=== PATIENT | female | born 1980 | race African-American/Black ===

== ENCOUNTER 2016-05-27 10:08 | Inpatient (IN) | payer OTHER ==
--- NOTE | ~2016-05-27 | DS ---
Discharge Summary [facility] [address] [place]. [address] NAME: KEE HOFF : 82 STATUS : DIS IN PAT#: [id number] AGE: 35 ADM/REG DATE : 05/27/16 MR#: [id number] REPORT SERV DATE: 06/03/16 DICTATED BY: CAROL ANN PENDLETON DATE: 06/02/16 REPORT STATUS : Draft TRANSCRIBED BY: MODL DATE: 06/02/16 ADMISSION DATE: 05/27/2016 DISCHARGE DATE: 06/02/2016 REASON FOR ADMISSION: Acute on chronic urinary retention with bilateral hydronephrosis, acute on chronic CKD stage 3, Klebsiella urinary tract infection. HISTORY OF PRESENT ILLNESS: Please refer Dr. Gaming's history and physical dated 05/27/2016 for complete details regarding the patient's admission. In brief, the patient was admitted to the Hospitalist Service for urinary tract infection, acute kidney injury. HOSPITAL COURSE: The patient had uncomplicated hospital course from admission to 05/31/2016. Please refer Dr. Sada Dewitt's interim summary. In brief, Dr. Dewitt had managed her acute on chronic urinary retention with bilateral hydronephrosis, her acute on chronic CKD stage 3 had been resolving. She had been diagnosed with Klebsiella urinary tract infection and was already on the appropriate antibiotic therapy. Hospital course from 06/01/2016 to present, I assumed care from Dr. Dewitt. The patient had a Hayes catheter placed on the day that I assumed care, she had already had one done when I assumed care of the patient. She had been treated with IV antibiotics since admission. Her Klebsiella urinary tract infection was weinberg-susceptible to all antibiotics tested. Her white blood cell count had always been normal. She has been afebrile for several days. Dr. Dewitt had tested her for the flu which was negative. Respiratory culture was obtained which showed growth of normal norma and Staph coag-negative species. She had a chest x-ray done, last one was May 29 which showed interval development of a in the left lung base consistent with infiltrate and atelectasis. She had a V/Q scan done which showed normal V/Q scan. CT scan of her abdomen and pelvis done on admission showed mild bilateral hydroureteronephrosis. The urinary bladder appears mildly diffusely thickened which may represent chronic changes of underlying cystitis. Renal ultrasound showed mild right hydronephrosis. No appreciable left hydronephrosis. Her acute on chronic CKD was resolved. Her kidney function is back to her baseline. On the day of discharge, she was weaned off oxygen saturating 95% on room air. She did have some nasal congestion and rhonchi on exam; however, she has been afebrile with a normal white blood cell count. She is on appropriate antibiotic therapy. She has reached maximal hospitalization. She continued to say that she did not feel well. When further talking to her, she was complaining of her typical flank pain that radiate down her leg, but again there were not reasons to continue to keep her hospitalized as all of her acute issues are now back to her baseline. The patient was discharged home in stable condition to follow up with Dr. Hernández in the clinic. DISCHARGE DIAGNOSES: 1. Acute on chronic urinary retention with bilateral hydronephrosis, now resolved. 2. Acute on chronic kidney disease stage 3, now resolved. 3. Metabolic acidosis, stable. 4. Klebsiella urinary tract infection, resolved. 5. Uncontrolled type 2 diabetes with hemoglobin A1c around 11%. 6. Chronic pain syndrome, on Marinol and narcotics. Discharge Summary [address] [address] NAME: KEE HOFF : 82 STATUS : DIS IN PAT#: [id number] AGE: 35 ADM/REG DATE : 05/27/16 MR#: [id number] REPORT SERV DATE: 06/03/16 DICTATED BY: CAROL ANN PENDLETON DATE: 06/02/16 REPORT STATUS : Draft TRANSCRIBED BY: ANA PAULA DATE: 06/02/16 PROCEDURES: Include chest x-ray, V/Q scan, renal ultrasound, CT scan of the abdomen and pelvis. DISCHARGE MEDICATIONS: Levaquin 750 mg once a day for seven days, Marinol 5 mg twice a day, gabapentin 600 mg four times a day, Robitussin p.r.n., NovoLog FlexPen 5 units three times a day before meals, Levemir 30 units at bedtime, sodium bicarbonate 1300 mg twice a day, albuterol, amlodipine 10 mg every morning, Pravachol 20 mg at bedtime, Bactroban p.r.n. She will follow up with Dr. Hernández in one week. This is Dr. Carol Ann Pendleton spending over 30 minutes on discharge planning and coordination of care. CHINMAY/ANA PAULA Carol Ann Pendleton MD / [id number] CC: MD Dr. Charito Galvan
--- NOTE | ~2016-05-27 | HP ---
History And Physical [place] [id number] [facility] [place]. [address] NAME: KEE HOFF : 82 STATUS : ADM IN PAT#: [id number] AGE: 35 ADM/REG DATE : 05/27/16 MR#: [id number] REPORT SERV DATE: 05/27/16 DICTATED BY: CORY CLARK DATE: 05/27/16 REPORT STATUS : Draft TRANSCRIBED BY: MODL DATE: 05/27/16 DATE OF ADMISSION: 05/27/2016 EXAMINING PHYSICIAN: Cory Clark M.D. REASON FOR ADMISSION: Pyelonephritis, urinary retention in type 1 diabetic with multiple complications. HISTORY: This is a 35-year-old, white female, with history of diabetes since . She has been on insulin since infancy. She has been somewhat noncompliant in the past and has multiple complications from the diabetes. She has gastroparesis and has a gastric pacemaker placed by [facility]. Dr. Jorgensen follows her locally. She had CT scan of her abdomen because of abdominal pain by Dr. Jorgensen. She is having continued abdominal pain, was sent around to the emergency room for evaluation and treatment. She is seen by Dr. Mark. Dr. Mark thought she had gastroparesis. Her complaint actually is back pain, flank pain, and dysuria. She does have evidence of urinary tract infection by urinalysis. In addition, CT scan of her abdomen had shown bilateral hydronephrosis which may be due to urinary retention which she has on the CT scan with underlying diffuse bladder thickening suggesting chronic infection. She has previous colon surgery with colostomy that was done for persistent diabetic diarrhea. She has gastric pacemaker in place, and the stomach is only mildly distended with air. She has edema within the abdominal and pelvic fat planes and subcutaneous edema as well of questionable significance. She has had no fever, chills, or night sweats. No hematuria. She does have some difficulty emptying her urine. Her hemoglobin A1c has been running in the 18 range. She has got down to 11. Her kidneys have began to fail, and she saw Dr. Hernández. He suggested she get the hemoglobin A1c down to around the 7 range. I do not believe she has ever seen the 7 range in the past. PAST MEDICAL HISTORY: Multiple hospitalizations in the past. Most recent discharge summary from April 07 when she was seen by Dr. Saxena for acute gastroparesis. Her hemoglobin A1c was down to 11.7 during that prior hospitalization. She had evidence of E. coli, urinary tract infection which was treated with ceftriaxone and subsequently switched to Unasyn because of resistance. She does have chronic urinary retention, was on a Hayes catheter in the past. She has chronic kidney disease stage 3, hypertension, and chronic pain. She had been on insulin pump in the past, now is on multiple subcutaneous dosing of insulin. HOME MEDICATIONS: Include the following: Albuterol aerosols four times a day as needed; amlodipine 10 mg p.o. q.a.m.; Marinol 5 mg p.o. before breakfast and supper; gabapentin 600 mg p.o. four times a day; Robitussin 10 mL b.i.d. p.r.n.; Insulin NovoLog 5 units subcu t.i.d.; Levemir 30 units at bedtime; Bactroban ointment to spots on her arm; oxycodone 15 mg q.6 hours scheduled for pain; and pravastatin 20 mg p.o. at bedtime. SOCIAL HISTORY: She has a boyfriend here with her. She does not smoke. She does not drink. She does claim she goes to [employer]. She has no children. History And Physical [address] [address] NAME: KEE HOFF : 82 STATUS : ADM IN [facility]#: [id number] AGE: 35 ADM/REG DATE : 05/27/16 MR#: [id number] REPORT SERV DATE: 05/27/16 DICTATED BY: CORY CLARK DATE: 05/27/16 REPORT STATUS : Draft TRANSCRIBED BY: ANA PAULA DATE: 05/27/16 FAMILY HISTORY: Her mother had breast cancer and diabetes. She did not know her father. PAST MEDICAL HISTORY: She has had multiple abscesses incised and drained, mostly skin. 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 She had her sixth finger removed at . She does a Port-A-Cath because of lack of venous access. She has a history of cardiac catheterization in December 2014, history of mesenteric artery occlusion, history of pancreatitis, history of fungemia. REVIEW OF SYSTEMS: She complains of abdominal pain, mostly heavy feeling in lower abdomen bilaterally. She has had no blood in her stool. Her bowels are moving now. She has had no vomiting. She has had no fever, chills, night sweats, unilateral weakness, melena, or hematemesis. She does have flank pain, dysuria. She does have hematuria as well with no fits, seizures, convulsions, unilateral weakness, melena, or hematemesis. The remainder of the review of systems is negative. PHYSICAL EXAMINATION: GENERAL: Black female in no acute distress. HEENT: EOMI. Sclerae clear. Conjunctivae pink. Tongue is dry. NECK: No bruit without any JVD. CHEST: Clear. HEART: Regular S1, S2 without murmur, gallop, or click. ABDOMEN: Soft, tender in the lower abdomen. There is colostomy to the left of midline lower abdomen. EXTREMITIES: No edema. Distal pulses are intact in dorsalis pedis and posterior tibial. NEUROLOGIC: She withdraws to plantar stimulation. Sensory is not good in the lower extremities. Her train director is equal and symmetric bilaterally. Coordination is intact. She has no tremor. She is symmetric and equal neurologically. Strength is equal and symmetric in the hands. She is wearing a wig today. PSYCHIATRIC: Her speech is cogent and goal directed. SKIN: Multiple cutaneous scarring. LABORATORY DATA: Her CT scan of the abdomen was as above. Her glucose has come down from over 500 to 198 with insulin. Her urinalysis shows glucose greater than 500 mg%. Ketones were negative, however. Her urine specific gravity 1.013, pH of 5. Her CMP showed a sodium 132, potassium 4.8, chloride of 99, CO2 is low at 21, creatinine 1.95 was as low as 1.7 previously with BUN of 19. Her glucose is 491 originally. Her albumin is 3.2, globulin of 43. Lipase was only 194. The flu A and B screen were negative. Her portable chest x-ray showed no evidence of acute cardiopulmonary disease. Her hemoglobin was 11.3, hematocrit 33, MCV was 74.5 with platelet count of 233,000. Arterial blood gases initially 7.42, 31, 46 on FiO2 21% but she has no respiratory distress. ASSESSMENT: History And Physical [address] [address] NAME: KEE HOFF : 82 STATUS : ADM IN PAT#: [id number] AGE: 35 ADM/REG DATE : 05/27/16 MR#: [id number] REPORT SERV DATE: 05/27/16 DICTATED BY: CORY CLARK DATE: 05/27/16 REPORT STATUS : Draft TRANSCRIBED BY: MODL DATE: 05/27/16 1. Urinary tract infection. 2. Urinary retention. 3. Hydronephrosis by CT scan. 4. Diabetes type 1, with last hemoglobin A1c being 11 range. 5. Hyperglycemia. 6. Chronic kidney disease with creatinine now up from 1.7 to 1.95, followed by Dr. Hernández. 7. Neuropathy. 8. IV access with Port-A-Cath. 9. History of pancreatitis. 10.Colostomy because of complications from the diabetes. 11.History of gastroparesis. CT scan of the abdomen shows decompression of the stomach with an air-fluid level, however, no gross distention. She is followed by Dr. Calloway at [facility] and Dr. Jorgensen, here. PLAN: Check urinary retention and place Hayes, start on IV antibiotics. She does not appear to be in diabetic ketoacidosis and says she can eat, and we will go ahead and feed and restart her usual insulin dosing at home rather than the D5 plus insulin regimen initially conceived. We will start normal saline at low rate as she is slightly hyponatremic though this may be factitious because of her high glucose level. We will start empiric antibiotics though last culture is reviewed from old records with E. coli that was resistant to gentamicin, sensitive to cefazolin, resistant to Cipro, Septra, and ampicillin. Therefore, we will use Rocephin 1 g IV q.24 hours. DB/ANA PAULA Cory Calrk M.D. / [id number] CC: Gabe Engel M.D. Jimmy Davis, M.D. Matthew Bagamery, M.D. Mango Gong III, M.D.
--- NOTE | ~2016-05-27 | IDS ---
Interim Discharge Summary [facility] [address] [place]. [address] NAME: KEE HOFF : 82 STATUS : ADM IN [facility]#: [id number] AGE: 35 ADM/REG DATE : 05/27/16 MR#: [id number] REPORT SERV DATE: 05/31/16 DICTATED BY: BOB DOWNS DATE: 05/31/16 REPORT STATUS : Draft TRANSCRIBED BY: ANA PAULA DATE: 05/31/16 ADMISSION DATE: 05/27/2016 DISCHARGE DATE: DIAGNOSES: 1. Acute on chronic urinary retention with bilateral hydronephrosis, improved. The patient self-catheterizes at home. 2. Acute on chronic kidney disease. 3. Metabolic acidosis. 4. Left lower lobe pneumonia. 5. Klebsiella urinary tract infection. 6. Elevated LFTs. 7. Type 1 diabetes, uncontrolled. 8. Chronic pain management. HOSPITAL COURSE: Please see H and P dictated by Dr. Gaming. This is a 35 years old female with a past medical history of chronic urinary retention, performs self- catheterizations at home and type 1 diabetes who presented with bilateral costovertebral angle discomfort as well as subjective fever and chills. The patient was seen in [facility] ER, found to have signs of urinary tract infection as well as urinary retention with hydronephrosis. The patient had not self-catheterized herself at that time. She did have a CT that revealed some bilateral hydronephrosis. However, no CT findings of pyelonephritis, although clinical suspicion was suggested on H and P. She was continued with IV antibiotics. Also during her hospital stay, the patient had some acute on chronic kidney disease with a creatinine elevating above her baseline to 2.67 and now is finally decreasing to 2.27. Suspect the patient may have had some underlying ATN. She did have some hypotension during her hospital course, which now has resolved. Also urinary tract infection has grown out Klebsiella. We will continue with her antibiotics. She does have a positive productive cough, rhonchi. We will continue with antibiotics for treatment. She did have a chest x-ray that has finally grew out some mild haziness in the left lower lobe consistent with a possible early pneumonia. Also, the patient will have a repeat influenza swab for intermittent fever spikes. So far, blood cultures are no growth to date. Also, the patient is on chronic pain management as an outpatient and continues with her home medications. The patient will be followed by Dr. Pendleton starting 06/01/2016, who will attend to this patient's care. JYOTHI/ANA PAULA Bob Downs M.D. / [id number] Interim Discharge Summary [address] [address] NAME: KEE HOFF : 82 STATUS : ADM IN [facility]#: [id number] AGE: 35 ADM/REG DATE : 05/27/16 MR#: [id number] REPORT SERV DATE: 05/31/16 DICTATED BY: BOB DOWNS DATE: 05/31/16 REPORT STATUS : Draft TRANSCRIBED BY: ANA PAULA DATE: 05/31/16 CC: Gabe Rivera Amy
[~2016-05-27 10:08] MED LIST: ?BP MED; ACET500CAP PO; AMB10 PO; AMB5 PO; AMBIEN; AMOX250 PO; APRES10B PO; APRES25 PO; APRES50 PO; ASAB PO; ATV1 PO; AUG875 PO; BAC PO; BACDS PO; CATAPRES2 TOP; CEFT5 PO; CELEXA20 PO; CELEXA40 MG PO; CIPOTIC OT; CLEOCIN300 MG PO; CLINORIL PO; COREG12 PO; DIL2TAB PO; DIL4TAB PO; DURA50 TOP; DURICEF PO; DURICEFSUS PO; ENDOCET1 TAB PO; ERY-TAB250 MG PO; FESO4 PO; FLORASTOR250 MG PO; FOLIC PO; GLUCAGON IM; HAIR/SKIN/NAILS VIT PO; HUMALOG SC; HUMALOGPEN SC; HUMAPUMP SC; HYDROCHLOROT12.5 MG PO; HYDROCHLOROT25 MG PO; IMOD PO; INSNOVR SC; K500 PO; KAYEXUD PO; LACHYDRIN LOT225 GM EX; LACTINEXT PO; LANTUS; LANTUS SC; LANTUSCART SC; LEVEMFLXPN SC; LEVEMIR SC; LIDO5OINT TOP; LIPITOR40 PO; LISINOPRIL PO; LISINOPRIL40 MG PO; LOP25 PO; LOP50 PO; LORTAB 5 PO; LORTAB10 PO; LYRICA100 MG PO; LYRICA150 MG PO; MAG OXIDE250 MG PO; MAGOX4 PO; MARI5 PO; MICROZIDE PO; MIRALAXPKT PO; MULTIPLE VIT PO; MYL80 PO; NEUR600 PO; NEUROPATHY MED; NORCO1 TAB PO; NORV10 PO; NORV25 PO; NORV5 PO; NOVOLOG INSULIN; NOVOLOG SC; NOVOPEN SC; OXYCOD PO; PAX20 PO; PAXIL PO; PAXIL30 MG PO; PAXIL40 MG PO; PEDIAZOLE PO; PERCOCET1 TA2 PO; PERCOCET1 TA4 PO; PR12.5 PO; PR25 PO; PRAVAC PO; PRAVACHOL40 MG PO; PRILOSEC OTC PO; PRILOSEC40 MG PO; PRIN10 PO; PRIN2.5 PO; PRIN20 PO; PRIN5 PO; PROTONIX PO; RANITIDINE300 MG PO; REFRESH OP; REG PO; REG5 PO; REGLAN; REGLAN10 MG PO; ROXICODONE15 MG PO; SEPTRA DS1 TAB PO; SUCR PO; T PO; THERGRANM PO; VICODINTAB PO; ZESTRIL20 MG PO; ZOFRAN ODT4 MG PO; ZOFRAN ODT4 MG PO/SL; ZOL50 PO; ZOLOFT25 MG PO
[2016-05-27 10:26] LABS: BASOPHILS 0.1 %; BASOPHILS ABSOLUTE 0.01 10/3/uL (0.0-0.16); EOSINOPHILS 1.2 %; HEMATOCRIT 33.1 % (36.0-48.0); HEMOGLOBIN 11.3 g/dL (12.0-16.0); IMMATURE GRANULOCYTES 0.4 %; IMMATURE GRANULOCYTES ABSOLUTE 0.03 10/3/uL (0.0-0.11); LYMPHOCYTES ABSOLUTE 0.42 10/3/uL (0.67-4.30); MEAN CORPUS HGB CONC 34.1 g/dL (32.0-36.0); MEAN CORPUSCULAR HEMOGLOB 25.5 pg (26.0-34.0); MEAN CORPUSCULAR VOLUME 74.5 fL (80-100); MEAN PLATELET VOLUME 12.2 fL (9.2-13.0); MONOCYTES 7.3 %; MONOCYTES ABSOLUTE 0.61 10/3/uL (0.21-1.20); NEUTROPHILS ABSOLUTE 7.22 10/3/uL (2.02-8.40); PLATELET COUNT 233 10/3/uL (150-400); RBC DISTRIBUTION WIDTH 13.2 % (12.0-16.0); RED CELL COUNT 4.44 10/6/uL (4.0-5.6); WHITE BLOOD CELLS 8.4 10/3/uL (4.5-10.5)
[2016-05-27 10:29] LABS: MANUAL DIFF NO %
[2016-05-27 10:34] LABS: BE (BASE EXCESS) -3.6 MEQ/L (0 +/- 2.5); CARBOXYHEMOGLOBIN 1.1 % (0-3); HCO3 (ACTUAL BICARBONATE) 19.9 MEQ/L (23-27); HEMOBLOGIN CONTENT 12.1 G/DL (12-16); INSTRUMENT SERIAL # 8087; METHEMOGLOBIN 0.4 % (0-3); O2 CONTENT 15.1 VOL% (18-24); PCO2 (CO2 TENSION) 31 MMHG (35-45); PO2 (O2 TENSION) 46 MMHG (79-93); pH 7.42 (7.37-7.43)
[2016-05-27 10:42] LABS: A/G RATIO 0.7 (0.7-1.9); ALBUMIN 3.2 G/DL (3.5-5.0); BUN (BLOOD UREA NITROGEN) 19 MG/DL (6-23); CALCIUM, SERUM 8.9 MG/DL (8.5-10.4); CHLORIDE, SERUM 99 MMOL/L (96-112); CREATININE 1.95 MG/DL (0.55-1.02); GFR AFRICAN AMERICAN 38 ML/MIN (>=60); GFR NON AFRICAN AMERICAN 33 ML/MIN (>=60); GLOBULIN 4.3 G/DL (2.5-4.1); POTASSIUM, SERUM 4.9 MMOL/L (3.5-5.3); SGPT(ALT) 177 U/L (5-65); SODIUM, SERUM 132 MMOL/L (135-148); TOTAL BILIRUBIN 0.3 MG/DL (0-1.2); TOTAL PROTEIN 7.5 G/DL (6.0-8.5)
[2016-05-27 10:43] LABS: ALKALINE PHOSPHATASE 207 U/L (45-117); CO2 (CARBON DIOXIDE) 21 MMOL/L (24-34); GLUCOSE, SERUM 491 MG/DL (60-99); SGOT(AST) 98 U/L (5-40)
[2016-05-27 10:45] LABS: MICROCYTES 1+ (5-10/OIF) (0-5/OIF); PLATELET ESTIMATE ADQ (ADEQUATE)
[2016-05-27 11:10] LABS: INFLUENZA A SCREEN NEGATIVE (NEGATIVE); INFLUENZA B SCREEN NEGATIVE (NEGATIVE)
[2016-05-27 12:04] LABS: ASCORBIC ACID (UR NOT ORDER) NEG (NEG); BILIRUBIN, URINE NEGATIVE (NEG); ER URINALYSIS TAT 0 Hrs 11 Mins; KETONE, URINE NEGATIVE (NEG); LEUKOCYTE ESTERASE(NOT OR NEG (NEG); NITRITE (URINE) NEG (NEG); WBC (NOT ORDERED) (RFLEX) 21 (0-5)
[2016-05-27] MEDS ORDERED: NORV10 PO (15:28)
[2016-05-27] MEDS ORDERED: MARI5 PO (15:29)
[2016-05-27] MEDS ORDERED: NEUR600 PO (15:29)
[2016-05-27] MEDS ORDERED: GGEXPUD PO (15:30)
[2016-05-27] MEDS ORDERED: NOVOPEN SC (15:30)
[2016-05-27] MEDS ORDERED: LEVEMFLXPN SC (15:31)
[2016-05-27] MEDS ORDERED: PRAVAC PO (15:31)
[2016-05-27] MEDS ORDERED: ROXICODONE15 MG PO (15:31)
[2016-05-27] MEDS ORDERED: ALBUTEROL0.083 % INH (15:32)
[2016-05-27] MEDS ORDERED: BACTROINT TOP (15:34)
[2016-05-28 05:15] LABS: BUN (BLOOD UREA NITROGEN) 17 MG/DL (6-23); CALCIUM, SERUM 8.3 MG/DL (8.5-10.4); CHLORIDE, SERUM 111 MMOL/L (96-112); CO2 (CARBON DIOXIDE) 26 MMOL/L (24-34); CREATININE 1.62 MG/DL (0.55-1.02); GFR AFRICAN AMERICAN 48 ML/MIN (>=60); GFR NON AFRICAN AMERICAN 41 ML/MIN (>=60); GLUCOSE, SERUM 52 MG/DL (60-99); SODIUM, SERUM 143 MMOL/L (135-148)
[2016-05-28 05:33] LABS: BASOPHILS 0.2 %; BASOPHILS ABSOLUTE 0.01 10/3/uL (0.0-0.16); EOSINOPHILS 0.3 %; EOSINOPHILS ABSOLUTE 0.02 10/3/uL (0.0-0.53); HEMATOCRIT 30.2 % (36.0-48.0); HEMOGLOBIN 10.4 g/dL (12.0-16.0); IMMATURE GRANULOCYTES 0.5 %; IMMATURE GRANULOCYTES ABSOLUTE 0.03 10/3/uL (0.0-0.11); LYMPHOCYTES 9.7 %; LYMPHOCYTES ABSOLUTE 0.61 10/3/uL (0.67-4.30); MEAN CORPUS HGB CONC 34.4 g/dL (32.0-36.0); MEAN CORPUSCULAR HEMOGLOB 26.5 pg (26.0-34.0); MEAN PLATELET VOLUME 11.8 fL (9.2-13.0); MONOCYTES 10.2 %; MONOCYTES ABSOLUTE 0.64 10/3/uL (0.21-1.20); NEUTROPHILS 79.1 %; NEUTROPHILS ABSOLUTE 4.98 10/3/uL (2.02-8.40); PLATELET COUNT 187 10/3/uL (150-400); RBC DISTRIBUTION WIDTH 13.2 % (12.0-16.0); RED CELL COUNT 3.92 10/6/uL (4.0-5.6); WHITE BLOOD CELLS 6.3 10/3/uL (4.5-10.5)
[2016-05-28 05:36] LABS: MANUAL DIFF NO %
[2016-05-28 09:59] LABS: TROPONIN I 0.05 NG/ML (<0.05)
[2016-05-28 10:20] LABS: HEPATITIS B SURFACE ANTIGEN NON-REACTIVE (NON-REACT)
[2016-05-28 10:47] LABS: HEPATITIS C ANTIBODY NON-REACTIVE (NON-REACT)
[2016-05-28 10:48] LABS: HEPATITIS B CORE AB IGM NON-REACTIVE (NON-REAC)
[2016-05-28 10:50] LABS: HEP A ANTIBODY IGM NON-REACTIVE (NON-REACT)
[2016-05-28 16:58] LABS: TROPONIN I 0.04 NG/ML (<0.05)
[2016-05-29 07:25] LABS: BUN (BLOOD UREA NITROGEN) 23 MG/DL (6-23); CHLORIDE, SERUM 109 MMOL/L (96-112); CO2 (CARBON DIOXIDE) 20 MMOL/L (24-34); GFR AFRICAN AMERICAN 31 ML/MIN (>=60); GFR NON AFRICAN AMERICAN 27 ML/MIN (>=60); GLUCOSE, SERUM 266 MG/DL (60-99); POTASSIUM, SERUM 4.6 MMOL/L (3.5-5.3); SODIUM, SERUM 139 MMOL/L (135-148)
[2016-05-29 17:11] LABS: ALBUMIN 2.4 G/DL (3.5-5.0); ALKALINE PHOSPHATASE 143 U/L (45-117); DIRECT BILIRUBIN < 0.1 MG/DL (0.0-0.4); INDIRECT BILIRUBIN(NOT ORDER) 0.1 MG/DL (0.1-0.9); SGOT(AST) 41 U/L (5-40); SGPT(ALT) 82 U/L (5-65); TOTAL BILIRUBIN 0.2 MG/DL (0-1.2); TOTAL PROTEIN 6.2 G/DL (6.0-8.5)
[2016-05-30 06:28] LABS: BUN (BLOOD UREA NITROGEN) 30 MG/DL (6-23); CALCIUM, SERUM 7.8 MG/DL (8.5-10.4); CHLORIDE, SERUM 112 MMOL/L (96-112); CO2 (CARBON DIOXIDE) 21 MMOL/L (24-34); CREATININE 2.67 MG/DL (0.55-1.02); GFR AFRICAN AMERICAN 26 ML/MIN (>=60); GFR NON AFRICAN AMERICAN 22 ML/MIN (>=60); GLUCOSE, SERUM 236 MG/DL (60-99); POTASSIUM, SERUM 4.3 MMOL/L (3.5-5.3); SODIUM, SERUM 142 MMOL/L (135-148)
[2016-05-30 16:41] LABS: CREATININE, URINE 88.7 MG/DL
[2016-05-31 05:07] LABS: BUN (BLOOD UREA NITROGEN) 25 MG/DL (6-23); CHLORIDE, SERUM 110 MMOL/L (96-112); CO2 (CARBON DIOXIDE) 23 MMOL/L (24-34); CREATININE 2.27 MG/DL (0.55-1.02); GFR AFRICAN AMERICAN 32 ML/MIN (>=60); GFR NON AFRICAN AMERICAN 27 ML/MIN (>=60); GLUCOSE, SERUM 229 MG/DL (60-99); POTASSIUM, SERUM 4.8 MMOL/L (3.5-5.3); SODIUM, SERUM 140 MMOL/L (135-148)
[2016-05-31 17:32] LABS: INFLUENZA A SCREEN NEGATIVE (NEGATIVE); INFLUENZA B SCREEN NEGATIVE (NEGATIVE)
[2016-06-01 05:21] LABS: BUN (BLOOD UREA NITROGEN) 22 MG/DL (6-23); CALCIUM, SERUM 8.1 MG/DL (8.5-10.4); CHLORIDE, SERUM 112 MMOL/L (96-112); CO2 (CARBON DIOXIDE) 21 MMOL/L (24-34); CREATININE 1.79 MG/DL (0.55-1.02); GFR AFRICAN AMERICAN 42 ML/MIN (>=60); GFR NON AFRICAN AMERICAN 36 ML/MIN (>=60); GLUCOSE, SERUM 207 MG/DL (60-99); SODIUM, SERUM 142 MMOL/L (135-148)
[2016-06-02] MEDS ORDERED: LEVAQUIN750 MG PO (10:04)
[2016-06-02] MEDS ORDERED: SODBICAR10 PO (10:05)
[2016-10-11] MEDS ORDERED: METANX PO (12:54)
[2016-10-11] MEDS ORDERED: NORV10 PO (12:55)
[2016-10-11] MEDS ORDERED: ROXICODONE15 MG PO (12:55)
[2016-10-11] MEDS ORDERED: MARI5 PO (12:55)
[2016-10-11] MEDS ORDERED: NOVOLOG SC (12:56)
[2016-10-11] MEDS ORDERED: LEVEMIR SC (12:56)
[2016-10-18] MEDS ORDERED: NORCO1 TA1 PO (15:03)
[2016-10-18] MEDS ORDERED: REG5 PO (15:03)
[2016-10-18] MEDS ORDERED: URISPAS 100 MG100 MG PO (15:04)
[2016-10-18] MEDS ORDERED: K500 PO (15:04)
[2016-11-04] MEDS ORDERED: ROXICODONE15 MG PO (01:03)
[2016-11-04] MEDS ORDERED: CAT1 PO (01:03)
[2016-11-04] MEDS ORDERED: LANTUS SC (01:05)
[2016-11-04] MEDS ORDERED: NORV10 PO (01:05)
[2016-11-04] MEDS ORDERED: NOVOPEN SC ×2 (01:06→01:07)
[2016-11-04] MEDS ORDERED: MARI5 PO (01:06)
[2016-11-04] MEDS ORDERED: LIDO2JELLY TOP (01:08)
[2016-11-10] MEDS ORDERED: COREG3 PO (09:50)
== END 2016-06-02 17:21 | disposition home or self-care (01) | DRG 699 ==
LOC: ER 10:08 → 5SO 16:11 → 7NO 16:39
PROVIDERS: Emergency Medicine; Internal Medicine
DX: T83.598A Infection and inflammatory reaction due to other prosthetic device, implant and graft in urinary system, initial encounter (principal); E87.2 Acidosis; E10.22 Type 1 diabetes mellitus with diabetic chronic kidney disease; N17.9 Acute kidney failure, unspecified; N18.3 Chronic kidney disease, stage 3 (moderate); E10.65 Type 1 diabetes mellitus with hyperglycemia; N13.6 Pyonephrosis; K31.84 Gastroparesis; E10.40 Type 1 diabetes mellitus with diabetic neuropathy, unspecified; J06.9 Acute upper respiratory infection, unspecified; R33.9 Retention of urine, unspecified; B96.1 Klebsiella pneumoniae [K. pneumoniae] as the cause of diseases classified elsewhere; E10.43 Type 1 diabetes mellitus with diabetic autonomic (poly)neuropathy; N30.20 Other chronic cystitis without hematuria; G89.4 Chronic pain syndrome; Z79.4 Long term (current) use of insulin; Z96.89 Presence of other specified functional implants; Z93.3 Colostomy status; Z91.19 Patient's noncompliance with other medical treatment and regimen
CPT/HCPCS: 36600; 71010; 71020; 74176; 76775; 78582; 80048; 80053; 80074; 80076; 81001; 82550; 82570; 82805; 82962; 83690; 83735; 84300; 84484; 84703; 85025; 85379; 87040; 87070; 87077; 87086; 87186; 87205; 87804; 87880; 89190; 93005; 94640; 99285; A9270-GY; A9540; A9567; J1170; J2405; J2543

== ENCOUNTER 2016-07-01 14:38 | Emergency (ER) | payer OTHER ==
[~2016-07-01 14:38] MED LIST changes: +ALBUTEROL0.083 % INH; +BACTROINT TOP; +GGEXPUD PO; +LEVAQUIN750 MG PO; +SODBICAR10 PO
[2016-10-11] MEDS ORDERED: METANX PO (12:54)
[2016-10-11] MEDS ORDERED: NORV10 PO (12:55)
[2016-10-11] MEDS ORDERED: MARI5 PO (12:55)
[2016-10-11] MEDS ORDERED: ROXICODONE15 MG PO (12:55)
[2016-10-11] MEDS ORDERED: NOVOLOG SC (12:56)
[2016-10-11] MEDS ORDERED: LEVEMIR SC (12:56)
[2016-10-18] MEDS ORDERED: REG5 PO (15:03)
[2016-10-18] MEDS ORDERED: NORCO1 TA1 PO (15:03)
[2016-10-18] MEDS ORDERED: K500 PO (15:04)
[2016-10-18] MEDS ORDERED: URISPAS 100 MG100 MG PO (15:04)
[2016-11-04] MEDS ORDERED: ROXICODONE15 MG PO (01:03)
[2016-11-04] MEDS ORDERED: CAT1 PO (01:03)
[2016-11-04] MEDS ORDERED: LANTUS SC (01:05)
[2016-11-04] MEDS ORDERED: NORV10 PO (01:05)
[2016-11-04] MEDS ORDERED: NOVOPEN SC ×2 (01:06→01:07)
[2016-11-04] MEDS ORDERED: MARI5 PO (01:06)
[2016-11-04] MEDS ORDERED: LIDO2JELLY TOP (01:08)
[2016-11-10] MEDS ORDERED: COREG3 PO (09:50)
== END 2016-07-01 15:34 | disposition home or self-care (01) ==
LOC: ER 14:38
DX: M54.2 Cervicalgia (principal); M54.5 Low back pain; I10 Essential (primary) hypertension; E11.9 Type 2 diabetes mellitus without complications; Z79.4 Long term (current) use of insulin; Z79.899 Other long term (current) drug therapy; V29.40XA Motorcycle driver injured in collision with unspecified motor vehicles in traffic accident, initial encounter
CPT/HCPCS: 70450; 72072; 72100; 72125; 93005; 99285